=== PATIENT | female | born 1990 | race African-American/Black ===

== ENCOUNTER 2016-05-01 11:11 | Emergency (ER) | payer OTHER ==
--- NOTE | ~2016-05-01 | CR2 ---
[facility] A Service of [facility] RADIOLOGY TEXT RESULTS PATIENT: BROOKE FAM LOCATION: [facility] : [birth year] UNIT #: [id number] AGE: [address]: Nabil Gaston MD SEX: F ORDER DR: [id number] [facility] [address] [place], [place] [address] [id number] E MR#: [id number] Acc #: [id number] NAME: BROOKE FAM : 1990 SEX: F STUDY DATE/TIME: 05/01/2016 10:57 UNIT: [facility] ROOM: STUDY DESCRIPTION: CR Abdomen Acute Series Attending Physician: Nabil Gaston M.D. Ordering Physician: Ed Doctor [id number] [facility] Primary Care Physician: Primary Care Physician No MEDICAL IMAGING REPORT This report is preliminary unless electronic signature is present EXAM Acute abdomen series 05/01/2016 10:57 hours HISTORY 25-year-old woman complaining of 3-day history of diffuse abdominal pain. No bowel movement for 3 days. COMPARISON None. FINDINGS Upright view of the chest demonstrates low lung volumes. The cardiac, mediastinal and hilar contours are normal. The lungs are clear. There is no pleural effusion, pneumothorax or free air in the abdomen. Supine and upright views of the abdomen demonstrate a nonspecific bowel gas pattern. There is no small bowel or colonic distension. Overall stool burden is within normal limits. No suspicious calcifications. There is sclerotic change on both sides of the pubic symphysis suggesting osteitis pubis. IMPRESSION 1. No acute findings in the chest. 2. No evidence of bowel obstruction or dilatation. The stool burden is within normal limits. 3. 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 Dictated by... Concepcion Wilson M.D. THIS IS AN ELECTRONICALLY VERIFIED REPORT Concepcion Wilson M.D. at 05/01/2016 1:18 PM [facility] A Service of [facility] RADIOLOGY TEXT RESULTS PAT[facility]: BROOKE FAM [id number] [birth year] UNIT #: [id number] AGE: [address]: Nabil Gaston MD SEX: F ORDER DR: TD: 05/01/2016 12:13 JOB #: [id number] MEDICAL IMAGING REPORT COPY
[~2016-05-01 11:11] MED LIST: NAPROXEN; PRENATAL MULITV1 TAB
== END 2016-05-01 12:38 | disposition home or self-care (01) ==
LOC: CED 11:11
DX: K59.00 Constipation, unspecified (principal); J45.909 Unspecified asthma, uncomplicated; Z88.0 Allergy status to penicillin; Z91.018 Allergy to other foods
CPT/HCPCS: 74022; 84703; 99283